=== PATIENT | male | born 1980 | race American Indian/Alaskan Native ===

== ENCOUNTER 2018-12-17 02:53 | Emergency (ER) | payer OTHER ==
[2018-12-17 02:59] VITALS: BP 134/83
[2018-12-17] MEDS ORDERED: HYDROGEN PEROXIDE TP ONE (03:16)
[2018-12-17] MEDS ORDERED: HYDROGEN PEROXIDE ONE (03:16)
--- NOTE | 2018-12-17 03:35 | Emergency Department Report ---
ED ENT HPI - General Chief complaint: Earache Stated complaint: RINGING IN EAR HIVES Time Seen by Provider: 12/17/18 03:09 Source: patient Mode of arrival: Ambulatory Limitations: No Limitations - History of Present Illness Initial comments: This is a 38-year-old male brought by mother nontoxic, well nourished in appearance, no acute signs of distress presents to the ED with c/o of left earache. Patient denies any ear drainage. Patient denies any trauma to the area. Patient denies any mastoid tenderness or tragus tenderness. Patient denies hearing decrease or hearing changes. Patient denies any fever, chills, nausea, vomiting, chest pain, short of breath, headache or stiff neck. Patient stated allergies to aspirin. MD complaint: ear pain -: days(s) (2) Location: L ear Severity: mild Severity scale (0 -10): 8 Quality: aching Consistency: constant Improves with: none Worsens with: none Associated Symptoms: denies: fever, cough, gum swelling, toothache, pain with swallowing, sore throat, tinnitus, hearing loss, discharge from ear, rhinorrhea - Related Data Previous Rx's Medication Instructions Recorded Last Taken Type Amoxicillin [Trimox CAP] 500 mg PO Q8H #30 capsule 06/06/15 Unknown Rx predniSONE [Deltasone] 20 mg PO TID #15 tab 06/06/15 Unknown Rx Amoxicillin [Amoxicillin TAB] 875 mg PO BID #20 tablet 12/17/18 Unknown Rx Polymyxin B Sulf/Trimethoprim 2 drops OS TID #1 drops 12/17/18 Unknown Rx [Polytrim Eye Drops] Allergies Allergy/AdvReac Type Severity Reaction Status Date / Time aspirin Allergy Unknown Verified 06/06/15 01:21 ED Dental HPI - General Chief complaint: Earache Stated complaint: RINGING IN EAR HIVES Time Seen by Provider: 12/17/18 03:09 Source: patient Mode of arrival: Ambulatory Limitations: No Limitations - Related Data Previous Rx's Medication Instructions Recorded Last Taken Type Amoxicillin [Trimox CAP] 500 mg PO Q8H #30 capsule 06/06/15 Unknown Rx predniSONE [Deltasone] 20 mg PO TID #15 tab 06/06/15 Unknown Rx Amoxicillin [Amoxicillin TAB] 875 mg PO BID #20 tablet 12/17/18 Unknown Rx Polymyxin B Sulf/Trimethoprim 2 drops OS TID #1 drops 12/17/18 Unknown Rx [Polytrim Eye Drops] Allergies Allergy/AdvReac Type Severity Reaction Status Date / Time aspirin Allergy Unknown Verified 06/06/15 01:21 ED Review of Systems ROS: Stated complaint: RINGING IN EAR HIVES Other details as noted in HPI Constitutional: denies: chills, fever Eyes: denies: eye pain, eye discharge, vision change ENT: ear pain. denies: throat pain Respiratory: denies: cough, shortness of breath, wheezing Cardiovascular: denies: chest pain, palpitations Endocrine: no symptoms reported Gastrointestinal: denies: abdominal pain, nausea, diarrhea Genitourinary: denies: urgency, dysuria Musculoskeletal: denies: back pain, joint swelling, arthralgia Skin: denies: rash, lesions Neurological: denies: headache, weakness, paresthesias Psychiatric: denies: anxiety, depression Hematological/Lymphatic: denies: easy bleeding, easy bruising ED Past Medical Hx - Past Medical History Previous Medical History?: No - Surgical History Past Surgical History?: Yes Additional Surgical History: Left pinky - Social History Smoking Status: Current Every Day Smoker Substance Use Type: Marijuana - Medications Home Medications: Home Medications Medication Instructions Recorded Confirmed Last Taken Type Amoxicillin [Trimox CAP] 500 mg PO Q8H #30 capsule 06/06/15 Unknown Rx predniSONE [Deltasone] 20 mg PO TID #15 tab 06/06/15 Unknown Rx Amoxicillin [Amoxicillin TAB] 875 mg PO BID #20 tablet 12/17/18 Unknown Rx Polymyxin B Sulf/Trimethoprim 2 drops OS TID #1 drops 12/17/18 Unknown Rx [Polytrim Eye Drops] ED Physical Exam - General Limitations: No Limitations General appearance: alert, in no apparent distress - Head Head exam: Present: atraumatic, normocephalic - Expanded ENT Exam Expanded Ear exam: Present: normal external inspection TM/Canal exam: Erythema: Left TM, Bulging: Left TM, Cerumen Impaction: Left TM Mouth exam: Present: normal external inspection Teeth exam: Present: normal inspection Throat exam: Positive: normal inspection - Neck Neck exam: Present: normal inspection, full ROM. Absent: tenderness, meningismus, lymphadenopathy - Extremities Exam Extremities exam: Present: normal inspection, full ROM - Back Exam Back exam: Present: normal inspection, full ROM - Neurological Exam Neurological exam: Present: alert, oriented X3 - Psychiatric Psychiatric exam: Present: normal affect, normal mood - Skin Skin exam: Present: warm, dry, intact, normal color. Absent: rash ED Course Vital Signs 12/17/18 02:58 Temperature 98.4 F Pulse Rate 58 L Respiratory 14 Rate Blood Pressure 134/83 O2 Sat by Pulse 100 Oximetry - Reevaluation(s) Reevaluation #1: 12/17/18 03:34 Patient is speaking in full sentences with no signs of distress noted. - Ear Wax Removal Left Ear Cerumenolytic Used: Other (hydroperoxide mixed with warm tap water [id number]) Ear Canal Irrigated by: other (myself) Ear Canal(s) Curettaged: plastic scoops, plastic loops Results: Re-examined: cerumen removed completel TM Visible: other (tympanic membrane bulging and erythema noted) Patient Tolerated Procedure: well, no complications Complications: no problems Critical care attestation.: If time is entered above; I have spent that time in minutes in the direct care of this critically ill patient, excluding procedure time. ED Disposition Clinical Impression: Left ear impacted cerumen Left otitis media Qualifiers: Otitis media type: unspecified Qualified Code(s): H66.92 - Otitis media, unspecified, left ear Disposition: DC- TO HOME OR SELFCARE Is pt being admited?: No Does the pt Need Aspirin: No Condition: Stable Instructions: Otitis Media (ED), Cerumen Impaction (ED) Additional Instructions: Follow-up with a primary care doctor in 3-5 days or if symptoms worsen and continue return to emergency room as soon as possible. Prescriptions: Amoxicillin [Amoxicillin TAB] 875 mg PO BID #20 tablet Polymyxin B Sulf/Trimethoprim [Polytrim Eye Drops] 2 drops OS TID #1 drops Referrals: [facility] MD ROBBIE [Primary Care Provider] - 3-5 Days PRIMARY CAREMD [Referring] - 3-5 Days VICTORINA HORNER MD [Staff Physician] - 3-5 Days [facility] [Outside] - 3-5 Days [facility] [Outside] - 3-5 Days Forms: Work/School Release Form(ED)
== END 2018-12-17 04:00 | disposition home or self-care (01) ==
LOC: ED 02:53
DX: H61.22 Impacted cerumen, left ear (principal); H66.92 Otitis media, unspecified, left ear; F17.200 Nicotine dependence, unspecified, uncomplicated; F12.10 Cannabis abuse, uncomplicated; Z79.899 Other long term (current) drug therapy; Z88.6 Allergy status to analgesic agent
CPT/HCPCS: 99282

== ENCOUNTER 2018-12-29 09:27 | Emergency (ER) | payer SELFPAY ==
[2018-12-29 09:33] VITALS: BP 129/79
--- NOTE | 2018-12-29 10:45 | Emergency Department Report ---
ED General Adult HPI - General Chief complaint: Earache Stated complaint: L EAR PAIN/HIVES/FACE/HANDS/LEGS Time Seen by Provider: 12/29/18 09:57 Source: patient Mode of arrival: Ambulatory Limitations: No Limitations - History of Present Illness Initial comments: Patient presents to the emergency department with a chief complaint of recurring rash to the hands and legs and lift her pain that has been present for greater than a week. Patient describes the itching from the rash being worse in the morning and states last week the vesicles were between his fingers but no longer there. Patient has fever, shortness breath, or chest pain. The patient states the rash is improved with Benadryl -: Sudden Radiation: non-radiation Consistency: constant Improves with: none Worsens with: none Associated Symptoms: denies other symptoms Treatments Prior to Arrival: none - Related Data Previous Rx's Medication Instructions Recorded Last Taken Type Amoxicillin [Trimox CAP] 500 mg PO Q8H #30 capsule 06/06/15 Unknown Rx predniSONE [Deltasone] 20 mg PO TID #15 tab 06/06/15 Unknown Rx Amoxicillin [Amoxicillin TAB] 875 mg PO BID #20 tablet 12/17/18 Unknown Rx Polymyxin B Sulf/Trimethoprim 2 drops OS TID #1 drops 12/17/18 Unknown Rx [Polytrim Eye Drops] Clindamycin [Clindamycin CAP] 150 mg PO Q8HR #42 capsule 12/29/18 Unknown Rx Hydrocortisone 2.5% [Hytone 2.5% 1 applicatio TP TID #1 tube 12/29/18 Unknown Rx CREAM] Permethrin 5% [Acticin 5% CREAM] 1 applicatio TP ONCE #1 tube 12/29/18 Unknown Rx Prednisone [predniSONE 10 mg 10 mg PO .TAPER #1 tab.ds.pk 12/29/18 Unknown Rx (6-Day Pack, 21 Tabs)] Allergies Allergy/AdvReac Type Severity Reaction Status Date / Time No Known Allergies Allergy Unverified 12/29/18 09:32 ED Review of Systems ROS: Stated complaint: L EAR PAIN/HIVES/FACE/HANDS/LEGS Other details as noted in HPI Constitutional: denies: chills, fever Eyes: denies: eye pain, eye discharge, vision change ENT: denies: ear pain, throat pain Respiratory: denies: cough, shortness of breath, wheezing Cardiovascular: denies: chest pain, palpitations Endocrine: no symptoms reported Gastrointestinal: denies: abdominal pain, nausea, diarrhea Genitourinary: denies: urgency, dysuria Musculoskeletal: denies: back pain, joint swelling, arthralgia Skin: rash. denies: lesions Neurological: denies: headache, weakness, paresthesias Psychiatric: denies: anxiety, depression Hematological/Lymphatic: denies: easy bleeding, easy bruising ED Past Medical Hx - Past Medical History Previous Medical History?: No - Surgical History Additional Surgical History: Left pinky - Social History Smoking Status: Never Smoker Substance Use Type: Marijuana - Medications Home Medications: Home Medications Medication Instructions Recorded Confirmed Last Taken Type Amoxicillin [Trimox CAP] 500 mg PO Q8H #30 capsule 06/06/15 Unknown Rx predniSONE [Deltasone] 20 mg PO TID #15 tab 06/06/15 Unknown Rx Amoxicillin [Amoxicillin TAB] 875 mg PO BID #20 tablet 12/17/18 Unknown Rx Polymyxin B Sulf/Trimethoprim 2 drops OS TID #1 drops 12/17/18 Unknown Rx [Polytrim Eye Drops] Clindamycin [Clindamycin CAP] 150 mg PO Q8HR #42 capsule 12/29/18 Unknown Rx Hydrocortisone 2.5% [Hytone 2.5% 1 applicatio TP TID #1 tube 12/29/18 Unknown Rx CREAM] Permethrin 5% [Acticin 5% CREAM] 1 applicatio TP ONCE #1 tube 12/29/18 Unknown Rx Prednisone [predniSONE 10 mg 10 mg PO .TAPER #1 tab.ds.pk 12/29/18 Unknown Rx (6-Day Pack, 21 Tabs)] ED Physical Exam - General Limitations: No Limitations General appearance: alert, in no apparent distress - Head Head exam: Present: atraumatic, normocephalic - Eye Eye exam: Present: normal appearance, PERRL, EOMI - ENT ENT exam: Present: mucous membranes moist, other (the left tympanic membrane is bulging without visualization of the ossicles) - Neck Neck exam: Present: normal inspection - Respiratory Respiratory exam: Present: normal lung sounds bilaterally. Absent: respiratory distress, wheezes, rales - Cardiovascular Cardiovascular Exam: Present: regular rate, normal rhythm. Absent: systolic murmur, diastolic murmur, rubs, gallop - GI/Abdominal GI/Abdominal exam: Present: soft, normal bowel sounds - Rectal Rectal exam: Present: deferred - Extremities Exam Extremities exam: Present: normal inspection - Back Exam Back exam: Present: normal inspection - Neurological Exam Neurological exam: Present: alert, oriented X3 - Psychiatric Psychiatric exam: Present: normal affect, normal mood - Skin Skin exam: Present: warm, dry, intact, normal color, rash (this is a non- discrete rash of the arms and hands that is fleshy in color and raised) ED Course Vital Signs 12/29/18 09:32 Temperature 97.6 F Pulse Rate 50 L Respiratory 16 Rate Blood Pressure 129/79 O2 Sat by Pulse 100 Oximetry ED Medical Decision Making - Medical Decision Making Discussed plan of care with patient Critical care attestation.: If time is entered above; I have spent that time in minutes in the direct care of this critically ill patient, excluding procedure time. ED Disposition Clinical Impression: Rash, AOM (acute otitis media) Disposition: - TO HOME OR SELFCARE Is pt being admited?: No Does the pt Need Aspirin: No Condition: Stable Instructions: Otitis Media (ED), Acute Rash (ED) Additional Instructions: return if worse Prescriptions: Permethrin 5% [Acticin 5% CREAM] 1 applicatio TP ONCE #1 tube Clindamycin [Clindamycin CAP] 150 mg PO Q8HR #42 capsule Hydrocortisone 2.5% [Hytone 2.5% CREAM] 1 applicatio TP TID #1 tube Prednisone [predniSONE 10 mg (6-Day Pack, 21 Tabs)] 10 mg PO .TAPER #1 tab.ds.pk Referrals: LETITIA COOK MD [Primary Care Provider] - 3-5 Days [facility] [Provider Group] - 3-5 Days [facility] [Provider Group] - 3-5 Days TY CONTRERAS MD [Referring] - 3-5 Days ADRIAN QUIROZ MD [Referring] - 3-5 Days Time of Disposition: 10:43
== END 2018-12-29 11:08 | disposition home or self-care (01) ==
LOC: ED 09:27
DX: H66.92 Otitis media, unspecified, left ear (principal); R21 Rash and other nonspecific skin eruption; F12.10 Cannabis abuse, uncomplicated
CPT/HCPCS: 99281

== ENCOUNTER 2019-10-01 05:07 | Emergency (ER) | payer SELFPAY ==
[2019-10-01 05:18] VITALS: BP 132/87
[2019-10-01] MEDS ORDERED: methylPREDNISolone Sod Succinate 125 MG/2 ML INJ IM ONE (05:28)
[2019-10-01] MEDS ORDERED: FAMOTIDINE 20 MG TAB PO ONE (05:28)
[2019-10-01] MEDS ORDERED: diphenhydrAMINE 25 MG CAP PO ONE (05:28)
[2019-10-01] MEDS ORDERED: methylPREDNISolone Sod Succinate 125 MG/2 ML INJ IV ONE (05:34)
[2019-10-01] MEDS ORDERED: FAMOTIDINE 20 MG/2 ML INJ IV ONE (05:35)
[2019-10-01] MEDS ORDERED: diphenhydrAMINE 50 MG/ML VIAL IV ONE (05:35)
--- NOTE | 2019-10-01 06:31 | Emergency Department Report ---
HPI - General Chief Complaint: Allergic Reaction - HPI HPI: Patient is a 39-year-old -[place] male with no past medical history presents to the ED with complaint of acute onset persistent severe diffuse itchy erythematous urticarial rashes for the last 8 hours after accidentally consuming food that contained peanuts that he is known to be allergic to. Patient states that he was at a constitution party over 12 hours ago and ate a lot of food after being reassured that there was no peanuts involved. Patient states that approximately 2 hours after eating the food that was presented, he started having persistent itchy diffuse erythematous maculopapular urticarial rashes with mild lip tightness. Patient states that he proceeded and took 2 Benadryl tablets immediately and which helped the itching and the tightness of his lips. Patient states that about 4 hours ago he woke up to persistent itching and diffuse erythematous maculopapular rashes again. Patient denies chest pain, shortness of breath, nausea, vomiting, diarrhea, abdominal pain, fever, cough, wheezing, chills, dysphagia, dysphonia, swollen lips or tongue, nasal and sinus congestion or facial swelling. ED Past Medical Hx - Past Medical History Previous Medical History?: No - Surgical History Past Surgical History?: Yes Additional Surgical History: Left pinky - Social History Smoking Status: Former Smoker Substance Use Type: None - Medications Home Medications: Home Medications Medication Instructions Recorded Confirmed Last Taken Type Amoxicillin [Trimox CAP] 500 mg PO Q8H #30 capsule 06/06/15 Unknown Rx predniSONE [Deltasone] 20 mg PO TID #15 tab 06/06/15 Unknown Rx Amoxicillin [Amoxicillin TAB] 875 mg PO BID #20 tablet 12/17/18 Unknown Rx Polymyxin B Sulf/Trimethoprim 2 drops OS TID #1 drops 12/17/18 Unknown Rx [Polytrim Eye Drops] Clindamycin [Clindamycin CAP] 150 mg PO Q8HR #42 capsule 12/29/18 Unknown Rx Hydrocortisone 2.5% [Hytone 2.5% 1 applicatio TP TID #1 tube 12/29/18 Unknown Rx CREAM] Permethrin 5% [Acticin 5% CREAM] 1 applicatio TP ONCE #1 tube 12/29/18 Unknown Rx Prednisone [predniSONE 10 mg 10 mg PO .TAPER #1 tab.ds.pk 12/29/18 Unknown Rx (6-Day Pack, 21 Tabs)] diphenhydrAMINE [Benadryl CAP] 25 mg PO Q6HR PRN #20 capsule 12/29/18 Unknown Rx ED Review of Systems ROS: Stated complaint: PEANUT ALLERGY Other details as noted in HPI Physical Exam - Physical Exam Vital Signs: Vital Signs 10/01/19 05:11 Temperature 98.1 F Pulse Rate 48 L Respiratory 20 Rate Blood Pressure 132/87 O2 Sat by Pulse 100 Oximetry ED Course Vital Signs 10/01/19 05:11 Temperature 98.1 F Pulse Rate 48 L Respiratory 20 Rate Blood Pressure 132/87 O2 Sat by Pulse 100 Oximetry Critical care attestation.: If time is entered above; I have spent that time in minutes in the direct care of this critically ill patient, excluding procedure time. ED Disposition Clinical Impression: Acute urticaria, Itching with irritation, Peanut allergy Acute allergic reaction Qualifiers: Encounter type: initial encounter Qualified Code(s): T78.40XA - Allergy, unspecified, initial encounter Disposition: DC-01 TO HOME OR SELFCARE Is pt being admited?: No Does the pt Need Aspirin: No Condition: Stable Instructions: Food Allergy (ED), Urticaria (ED), Itchy Skin (ED)
--- NOTE | 2019-10-01 06:40 | Emergency Department Report ---
ED Allergic Reaction HPI - General Chief complaint: Allergic Reaction Stated complaint: PEANUT ALLERGY Source: patient Mode of arrival: Ambulatory Limitations: No Limitations - History of Present Illness Initial Comments: Patient is a 39-year-old -[place] male with no past medical history presents to the ED with complaint of acute onset persistent severe diffuse itchy erythematous urticarial rashes for the last 8 hours after accidentally consuming food that contained peanuts that he is known to be allergic to. Patient states that he was at a alliance party over 12 hours ago and ate a lot of food after being reassured that there was no peanuts involved. Patient states that approximately 2 hours after eating the food that was presented, he started having persistent itchy diffuse erythematous maculopapular urticarial rashes with mild lip tightness. Patient states that he proceeded and took 2 Benadryl tablets immediately and which helped the itching and the tightness of his lips. Patient states that about 4 hours ago he woke up to persistent itching and diffuse erythematous maculopapular rashes again. Patient denies chest pain, shortness of breath, nausea, vomiting, diarrhea, abdominal pain, fever, cough, wheezing, chills, dysphagia, dysphonia, swollen lips or tongue, nasal and sinus congestion or facial swelling. MD Complaint: allergic reaction, hives, other (Diffuse itchy erythematous maculopapular rashes) -: Sudden, hour(s) (8) Exposure: food (Peanuts) Symptoms: rash, itching. denies: facial swelling, lip swelling, difficulty swallowing, difficulty breathing, orolingual swelling, hoarseness, syncopy, dizziness, nausea, vomiting, other Severity: severe Treatment Prior to Arrival: benadryl Previous Allergy History: other (Peanut allergy) - Related Data Previous Rx's Medication Instructions Recorded Last Taken Type Amoxicillin [Trimox CAP] 500 mg PO Q8H #30 capsule 06/06/15 Unknown Rx predniSONE [Deltasone] 20 mg PO TID #15 tab 06/06/15 Unknown Rx Amoxicillin [Amoxicillin TAB] 875 mg PO BID #20 tablet 12/17/18 Unknown Rx Polymyxin B Sulf/Trimethoprim 2 drops OS TID #1 drops 12/17/18 Unknown Rx [Polytrim Eye Drops] Clindamycin [Clindamycin CAP] 150 mg PO Q8HR #42 capsule 12/29/18 Unknown Rx Hydrocortisone 2.5% [Hytone 2.5% 1 applicatio TP TID #1 tube 12/29/18 Unknown Rx CREAM] Permethrin 5% [Acticin 5% CREAM] 1 applicatio TP ONCE #1 tube 12/29/18 Unknown Rx Prednisone [predniSONE 10 mg 10 mg PO .TAPER #1 tab.ds.pk 12/29/18 Unknown Rx (6-Day Pack, 21 Tabs)] diphenhydrAMINE [Benadryl CAP] 25 mg PO Q6HR PRN #20 capsule 12/29/18 Unknown Rx Famotidine [Pepcid] 20 mg PO Q12H #30 tablet 10/01/19 Unknown Rx Prednisone [predniSONE 10 mg 10 mg PO .TAPER #21 tab.ds.pk 10/01/19 Unknown Rx (6-Day Pack, 21 Tabs)] hydrOXYzine PAMOATE [Vistaril] 50 mg PO Q6HR PRN #30 capsule 10/01/19 Unknown Rx Allergies Allergy/AdvReac Type Severity Reaction Status Date / Time No Known Allergies Allergy Unverified 12/29/18 09:32 ED Review of Systems ROS: Stated complaint: PEANUT ALLERGY Other details as noted in HPI Constitutional: denies: chills, fever Eyes: denies: eye pain, eye discharge, vision change ENT: denies: ear pain, throat pain Respiratory: denies: cough, shortness of breath, wheezing Cardiovascular: denies: chest pain, palpitations Endocrine: no symptoms reported Gastrointestinal: denies: abdominal pain, nausea, diarrhea Genitourinary: denies: urgency, dysuria Musculoskeletal: denies: back pain, joint swelling, arthralgia Skin: rash (Diffuse erythematous maculopapular urticarial itchy rashes), change in color, pruritus. denies: lesions Neurological: denies: headache, weakness, paresthesias Psychiatric: anxiety. denies: depression Hematological/Lymphatic: denies: easy bleeding, easy bruising ED Past Medical Hx - Past Medical History Previous Medical History?: No - Surgical History Past Surgical History?: Yes Additional Surgical History: Left pinky - Social History Smoking Status: Former Smoker Substance Use Type: None - Medications Home Medications: Home Medications Medication Instructions Recorded Confirmed Last Taken Type Amoxicillin [Trimox CAP] 500 mg PO Q8H #30 capsule 06/06/15 Unknown Rx predniSONE [Deltasone] 20 mg PO TID #15 tab 06/06/15 Unknown Rx Amoxicillin [Amoxicillin TAB] 875 mg PO BID #20 tablet 12/17/18 Unknown Rx Polymyxin B Sulf/Trimethoprim 2 drops OS TID #1 drops 12/17/18 Unknown Rx [Polytrim Eye Drops] Clindamycin [Clindamycin CAP] 150 mg PO Q8HR #42 capsule 12/29/18 Unknown Rx Hydrocortisone 2.5% [Hytone 2.5% 1 applicatio TP TID #1 tube 12/29/18 Unknown Rx CREAM] Permethrin 5% [Acticin 5% CREAM] 1 applicatio TP ONCE #1 tube 12/29/18 Unknown Rx Prednisone [predniSONE 10 mg 10 mg PO .TAPER #1 tab.ds.pk 12/29/18 Unknown Rx (6-Day Pack, 21 Tabs)] diphenhydrAMINE [Benadryl CAP] 25 mg PO Q6HR PRN #20 capsule 12/29/18 Unknown Rx Famotidine [Pepcid] 20 mg PO Q12H #30 tablet 10/01/19 Unknown Rx Prednisone [predniSONE 10 mg 10 mg PO .TAPER #21 tab.ds.pk 10/01/19 Unknown Rx (6-Day Pack, 21 Tabs)] hydrOXYzine PAMOATE [Vistaril] 50 mg PO Q6HR PRN #30 capsule 10/01/19 Unknown Rx ED Physical Exam - General Limitations: No Limitations General appearance: alert, in no apparent distress - Head Head exam: Present: atraumatic, normocephalic, normal inspection - Eye Eye exam: Present: normal appearance, PERRL, EOMI Pupils: Present: normal accommodation - ENT ENT exam: Present: normal exam, normal orophraynx, mucous membranes moist, TM's normal bilaterally, normal external ear exam - Neck Neck exam: Present: normal inspection, full ROM - Respiratory Respiratory exam: Present: normal lung sounds bilaterally. Absent: respiratory distress, wheezes, rales, rhonchi, chest wall tenderness, accessory muscle use, decreased breath sounds, prolonged expiratory - Cardiovascular Cardiovascular Exam: Present: regular rate, normal rhythm, normal heart sounds. Absent: systolic murmur, diastolic murmur, rubs, gallop - GI/Abdominal GI/Abdominal exam: Present: soft, normal bowel sounds. Absent: tenderness, guarding, hyperactive bowel sounds - Extremities Exam Extremities exam: Present: normal inspection, full ROM, normal capillary refill - Back Exam Back exam: Present: normal inspection, full ROM. Absent: tenderness, CVA tenderness (R), CVA tenderness (L), muscle spasm, paraspinal tenderness - Neurological Exam Neurological exam: Present: alert, oriented X3, CN II-XII intact, normal gait, reflexes normal - Psychiatric Psychiatric exam: Present: normal affect, normal mood, anxious - Skin Skin exam: Present: warm, dry, intact, rash (Diffuse erythematous maculopapular urticarial rashes), erythema, urticaria ED Course Vital Signs 10/01/19 05:11 Temperature 98.1 F Pulse Rate 48 L Respiratory 20 Rate Blood Pressure 132/87 O2 Sat by Pulse 100 Oximetry ED Medical Decision Making - Medical Decision Making This is a 39-year-old male with a history of prior peanut allergies presented to the ED with acute onset persistent itchy erythematous maculopapular urticarial rashes for 8 hours after eating peanut laced food at a alliance party over 12 hours ago. Patient had taken Benadryl 6 hours prior to arrival and still complained of persistent itchy erythematous maculopapular rashes. In the ED, patient is alert and oriented x3 and is not in any distress but bradycardic at 48 bpm, otherwise other vital signs are stable. Patient was treated in the ED with Solu-Medrol 125 mg IV x1, Benadryl 25 mg IV x1 and Pepcid 20 mg IV x1. On reevaluation, patient's itching resolved and patient is alert and oriented x3 and is not in distress. Patient was discharged home on prednisone Dosepak, Vistaril 50 mg every 6 hours as needed and Pepcid 20 mg twice a day. Patient was advised to follow-up with his primary care physician in 5 to 7 days for reevaluation. Or return to the ED immediately if symptoms get worse. - Differential Diagnosis Allergic reaction; Anaphylaxis; Angioedema; Itching Critical care attestation.: If time is entered above; I have spent that time in minutes in the direct care of this critically ill patient, excluding procedure time. ED Disposition Clinical Impression: Itching with irritation, Acute urticaria, Peanut allergy Acute allergic reaction Qualifiers: Encounter type: initial encounter Qualified Code(s): T78.40XA - Allergy, unspecified, initial encounter Disposition: - TO HOME OR SELFCARE Is pt being admited?: No Does the pt Need Aspirin: No Condition: Stable Instructions: Urticaria (ED), Food Allergy (ED), Itchy Skin (ED) Additional Instructions: Take medications with food, drink plenty of fluids and follow-up with your primary care physician in 5 to 7 days for reevaluation. Return to the ED immediately if symptoms get worse. Prescriptions: Famotidine [Pepcid] 20 mg PO Q12H #30 tablet Prednisone [predniSONE 10 mg (6-Day Pack, 21 Tabs)] 10 mg PO .TAPER #21 tab.ds.pk hydrOXYzine PAMOATE [Vistaril] 50 mg PO Q6HR PRN #30 capsule PRN Reason: Itching Referrals: [facility] [Outside] - 3-5 Days Forms: Work/School Release Form(ED) Time of Disposition: 06:40 Print Language: [id number]
== END 2019-10-01 06:40 | disposition home or self-care (01) ==
LOC: ED 05:07
DX: T78.1XXA Other adverse food reactions, not elsewhere classified, initial encounter (principal); L29.8 Other pruritus; L50.8 Other urticaria; Z98.890 Other specified postprocedural states; Z87.891 Personal history of nicotine dependence; Z79.899 Other long term (current) drug therapy; X58.XXXA Exposure to other specified factors, initial encounter
CPT/HCPCS: 96374; 96375; 99282; J1200; J2930